=== PATIENT | male | born 1985 | race Caucasian/White ===

== ENCOUNTER 2023-09-06 14:27 | Emergency (ER) | payer OTHER ==
[~2023-09-06] VITALS: Ht 175.3 cm; Wt 70.3 kg
[2023-09-06 14:38] VITALS: BP 134/89
[2023-09-06] MEDS ORDERED: OMEP20ER PO (16:01)
== END 2023-09-06 16:58 | disposition home or self-care (01) ==
LOC: ER 14:27
DX: M25.512 Pain in left shoulder (principal); V48.5XXA Car driver injured in noncollision transport accident in traffic accident, initial encounter; Y92.411 Interstate highway as the place of occurrence of the external cause; Z79.899 Other long term (current) drug therapy
CPT/HCPCS: 71046; 99284-25